=== PATIENT | female | born 2000 | race Caucasian/White ===

== ENCOUNTER 2020-11-30 14:43 | Outpatient (REF) | payer OTHER, SELFPAY | END 2020-11-30 14:44 | disposition home or self-care (01) | LOC: HO.HMGCLDS 14:43 | PROVIDERS: Visit Provider Internal Medicine | DX: Z20.828 Contact with and (suspected) exposure to other viral communicable diseases (principal) | CPT/HCPCS: C9803; U0003 ==

== ENCOUNTER 2023-01-24 05:10 | Emergency (ER) | payer OTHER, SELFPAY ==
[2023-01-24 05:45] VITALS: BP 119/75; PULSE 134; RESP 20; TEMP 36.6; O2SAT 96; BMI 29.7
[2023-01-24 06:03] VITALS: BP 113/82; PULSE 109; RESP 21; TEMP 36.6; O2SAT 95
--- NOTE | 2023-01-24 06:04 | MHC.EDTECH ---
Pt made aware that urine sample is needed. Pt states she does not need to go at the moment. Pt instructed to ring call ronquillo when she is ready so a sample can be applied.
[2023-01-24] MEDS: ondansetron HCL 4 MG/2 ML VIAL IVPUSH (06:08)
[2023-01-24] MEDS: 0.9 % Sodium Chloride 1,000 ML 999 ML IV (06:09)
--- NOTE | 2023-01-24 06:09 | PC.NURSE ---
Addendum entered by Staci Molina 01/24/23 06:10: IV was [id number] on her RAC. IVF are running per MAR. Original Note: Pt's BP is normal, pt is on the traffic monitor specialist and it shows sinus tachy, pt reports N/V and diarrhea x 4 hours. Pt is a/o x4, and afribile, no chills or any other symptoms.
[2023-01-24 06:10] LABS: MANUAL DIFF FLAG NO
[2023-01-24 06:11] VITALS: BP 113/82; PULSE 104; RESP 20; TEMP 36.6; O2SAT 96
[2023-01-24 06:23] LABS: Basophils Percent Auto 0.2 % (0-2); Eosinophils Absolute Auto 0.1 X10*3/uL (0.0-0.4); Eosinophils Percent Auto 0.4 % (0-4); Hemoglobin 15.6 g/dl (12.0-16.0); Imm Gran Abs Auto 0.04 X10*3/uL (0.00-0.03); Imm Gran Pct Auto 0.3 % (0.0-0.4); Lymphocytes Absolute Auto 0.9 X10*3/uL (1.2-4.9); Lymphocytes Percent Auto 6.1 % (20-40); Mean Corpuscular HGB Conc 34.7 g/dl (31.0-35.0); Mean Corpuscular Hemoglobin 29.9 pg (27.0-33.0); Mean Corpuscular Volume 86.2 fL (80.0-98.0); Mean Platelet Volume 11.4 fL (9.4-12.3); Monocytes Absolute Auto 0.7 X10*3/uL (0.1-1.2); Monocytes Percent Auto 4.5 % (2-11); Neutrophils Absolute Auto 12.8 x10*3/uL (2.0-8.3); Neutrophils Percent Auto 88.5 % (45-73); Platelet Count 264 X10*3/uL (160-400); Red Blood Count 5.22 X10*6/uL (4.20-5.50); Red Cell Distribution Width 12.1 % (11.0-16.0); White Blood Count 14.4 X10*3/uL (4.8-10.8)
[2023-01-24 06:26] LABS: COVID-19 Test Negative (Negative); IDNOW Serial# BCCEAD1C
[2023-01-24 06:44] LABS: Anion Gap 19 (12-20); Blood Urea Nitrogen 12 mg/dL (9-16); Calcium 9.3 mg/dL (8.4-10.2); Carbon Dioxide 21 mmol/L (22-29); Chloride 106 mmol/L (96-108); Creatinine Clr Calc Pharmacy 135.8; Estimated Glomerular Filt Rate > 60; Glucose Random 138 mg/dL (60-115); Lipase 16 U/L (8-78); Potassium 4.5 mmol/L (3.3-5.1); Sodium 141 mmol/L (135-145)
--- NOTE | 2023-01-24 06:47 | ED_ITS ---
HPI - General Adult General Chief complaint: Nausea/Vomiting/Diarrhea Stated complaint: n/v Time Seen by Provider: 01/24/23 06:37 Source: patient Mode of arrival: ambulatory Limitations: no limitations History of Present Illness HPI narrative: 22-year-old female with no previous medical problems presents with 1 day of nausea, vomiting, diarrhea. Patient has had some urinary symptoms for which she started nitrofurantoin. She still has some urinary symptoms. She has had no fevers or chills. She has had some very mild generalized abdominal discomfort. Her diarrhea has been nonbloody. Her vomitus has also been nonbloody, nonbilious. She does have a sick contact in her family who also has nausea vomiting diarrhea. There has been no clear relieving or exacerbating features patient scribe's of symptoms is moderate nature. She has no back pain. Related Data Previous Rx's Medication Instructions Recorded ondansetron 4 mg disintegrating 4 mg PO Q8H PRN nausea and 01/24/23 tablet vomiting #10 tabs Allergies Allergy/AdvReac Type Severity Reaction Status Date / Time oxycodone AdvReac Vomiting Verified 01/24/23 05:44 Review of Systems Review of Systems: CONSTITUTIONAL: Denies weight loss, fever and chills. HEENT: Denies changes in vision and hearing. RESPIRATORY: Denies SOB and cough. CV: Denies palpitations no CP. GI: + abdominal pain, nausea, vomiting and diarrhea. : Denies dysuria and urinary frequency. MSK: Denies myalgia and joint pain. SKIN: Denies rash and pruritus. NEUROLOGICAL: Denies headache and syncope. PSYCHIATRIC: Denies recent changes in mood. Denies anxiety and depression. All other ROS are negative unless in HPI PMFSH Social History Social History Smoked in Last 30 Days: Yes Use of substances other than those prescribed or required for medical reasons: No Advance Directives: No Patient : No Physical Exam ED Vital Signs: Vital Signs - 24 hr 01/24/23 05:45 01/24/23 06:03 01/24/23 06:11 Temperature 97.9 F 97.8 F 97.8 F Pulse Rate 134 H 109 H 104 H Respiratory Rate 20 21 H 20 Blood Pressure 119/75 113/82 113/82 Pulse Oximetry 96 95 96 Oxygen Delivery Method Room Air Room Air Room Air BMI result Body Mass Index 29.7 CONSTITUTIONAL: Denies weight loss, fever and chills. HEENT: Denies changes in vision and hearing. RESPIRATORY: Denies SOB and cough. CV: Denies palpitations no CP. GI: + abdominal pain, nausea, vomiting and diarrhea. : Denies dysuria and urinary frequency. MSK: Denies myalgia and joint pain. SKIN: Denies rash and pruritus. NEUROLOGICAL: Denies headache and syncope. PSYCHIATRIC: Denies recent changes in mood. Denies anxiety and depression. All other ROS are negative unless in HPI Course Course Course Narrative: 22-year-old female presents with nausea, vomiting, diarrhea with a sick contact. She has minimal abdominal pain. Her examination was benign without rebound or guarding. She has no CVA tenderness. She is currently on antibiotics for urinary tract infection. She has no vaginal bleeding or discharge. Differential diagnosis could include viral gastroenteritis, antibiotic associated symptoms, IBS, IBD, pyelonephritis, UTI. Patient will receive IV fluids, antiemetics. She has no significant abdominal pain. This time, will withhold analgesics medications. Will re-evaluate following intervention. Also will check laboratory results and make sure she does not have any significant electrolyte abnormalities such as hypokalemia. She may also have hyponatremia from hypovolemia. She does not appear to be severely dehydrated. Suspect patient will be able to be discharged following full workup. Reevaluation(s) Reevaluation #1: Patient is feeling improved. She was able tolerate oral intake. Discussed discharge instructions Time: 09:16 Medications Administered Discontinued Medications Generic Name Dose Route Start Last Admin Trade Name Fuentes PRN Reason Stop Dose Admin Sodium Chloride 1,000 mls @ 999 mls/hr 01/24/23 06:00 01/24/23 06:09 Ns IV 01/24/23 07:00 999 mls/hr .[id number] LEONEL Administration Ondansetron HCl 4 mg 01/24/23 05:50 01/24/23 06:08 Ondansetron Hcl 4 Mg/2 Ml Vial IVPUSH 01/24/23 05:51 4 mg ONCE ONE Administration Medical Decision Making Medical Decision Making [facility] Narrative: 22-year-old female presents with nausea, vomiting, diarrhea. She has no abdominal tenderness, rebound or guarding. Doubt acute abdomen. Will provide patient with IV fluids, antiemetics, re-evaluate. Differential Diagnosis Differential Diagnoses: The differential diagnosis associated with the presentation includes (Gastroenteritis, nausea/vomiting/diarrhea, UTI, pyelonephritis, antibiotic associated diarrhea, appendicitis, diverticulitis colitis, IBS, IBD) Admission/Observation Consideration of admission/observation: Escalation of care including admission/observation considered Lab Data MDM Lab Attestation statement: I reviewed the patient's lab results. 01/24/23 06:01 01/24/23 06:01 Labs: Lab Results 01/24/23 01/24/23 01/24/23 Range/Units 06:01 06:01 06:01 WBC 14.4 H (4.8-10.8) X10*3/uL RBC 5.22 (4.20-5.50) X10*6/uL Hgb 15.6 (12.0-16.0) g/dl Hct 45.0 (37.0-47.0) % MCV 86.2 (80.0-98.0) fL MCH 29.9 (27.0-33.0) pg MCHC 34.7 (31.0-35.0) g/dl RDW 12.1 (11.0-16.0) % Plt Count 264 (160-400) X10*3/uL MPV 11.4 (9.4-12.3) fL Immature Gran % (Auto) 0.3 (0.0-0.4) % Neut % (Auto) 88.5 H (45-73) % Lymph % (Auto) 6.1 L (20-40) % [place] % (Auto) 4.5 (2-11) % Eos % (Auto) 0.4 (0-4) % Baso % (Auto) 0.2 (0-2) % Lymph # (Auto) 0.9 L (1.2-4.9) X10*3/uL [place] # (Auto) 0.7 (0.1-1.2) X10*3/uL Eos # (Auto) 0.1 (0.0-0.4) X10*3/uL Baso # (Auto) 0.0 (0.0-0.2) X10*3/uL Abs Immat Gran (auto) 0.04 H (0.00-0.03) X10*3/uL Absolute Neuts (auto) 12.8 H (2.0-8.3) x10*3/uL Absolute Nucleated RBC 0.000 (0.0-0.012) X10*3/uL Nucleated RBC % (auto) 0.0 (0.0-0.2) /100WBC Sodium 141 (135-145) mmol/L Potassium 4.5 (3.3-5.1) mmol/L Chloride 106 (96-108) mmol/L Carbon Dioxide 21 L (22-29) mmol/L Anion Gap 19 (12-20) BUN 12 (9-16) mg/dL Creatinine 0.72 (0.5-1.4) mg/dL Estim Creat Clear Calc 135.8 Estimated GFR > 60 Random Glucose 138 H (60-115) mg/dL Calcium 9.3 (8.4-10.2) mg/dL Lipase 16 (8-78) U/L Urine Color Urine Appearance Urine pH (5.0-9.0) Ur Specific [place] (1.005-1.025) Urine Protein (Neg-Trace) mg/dL Urine Glucose (UA) (Negative) mg/dL Urine Ketones (Negative) mg/dL Urine Blood (Negative) Urine Nitrite (Negative) Ur Leukocyte Esterase (Negative) Urine RBC (0-2) /HPF Urine WBC (0-5) /HPF Ur Squamous Epith Cells (0-2) /HPF Urine Bacteria (None Seen) Hyaline Casts (0-2) /LPF COVID-19 ([facility]) Negative (Negative) COVID-19 Clin Com See Note 01/24/23 Range/Units 06:51 WBC (4.8-10.8) X10*3/uL RBC (4.20-5.50) X10*6/uL Hgb (12.0-16.0) g/dl Hct (37.0-47.0) % MCV (80.0-98.0) fL MCH (27.0-33.0) pg MCHC (31.0-35.0) g/dl RDW (11.0-16.0) % Plt Count (160-400) X10*3/uL MPV (9.4-12.3) fL Immature Gran % (Auto) (0.0-0.4) % Neut % (Auto) (45-73) % Lymph % (Auto) (20-40) % [place] % (Auto) (2-11) % Eos % (Auto) (0-4) % Baso % (Auto) (0-2) % Lymph # (Auto) (1.2-4.9) X10*3/uL [place] # (Auto) (0.1-1.2) X10*3/uL Eos # (Auto) (0.0-0.4) X10*3/uL Baso # (Auto) (0.0-0.2) X10*3/uL Abs Immat Gran (auto) (0.00-0.03) X10*3/uL Absolute Neuts (auto) (2.0-8.3) x10*3/uL Absolute Nucleated RBC (0.0-0.012) X10*3/uL Nucleated RBC % (auto) (0.0-0.2) /100WBC Sodium (135-145) mmol/L Potassium (3.3-5.1) mmol/L Chloride (96-108) mmol/L Carbon Dioxide (22-29) mmol/L Anion Gap (12-20) BUN (9-16) mg/dL Creatinine (0.5-1.4) mg/dL Estim Creat Clear Calc Estimated GFR Random Glucose (60-115) mg/dL Calcium (8.4-10.2) mg/dL Lipase (8-78) U/L Urine Color Dark Yellow Urine Appearance Cloudy Urine pH 6.0 (5.0-9.0) Ur Specific [place] >= 1.030 H (1.005-1.025) Urine Protein 30 (1+) H (Neg-Trace) mg/dL Urine Glucose (UA) Negative (Negative) mg/dL Urine Ketones 40 (Negative) mg/dL Urine Blood Moderate (2+) H (Negative) Urine Nitrite Positive H (Negative) Ur Leukocyte Esterase Small (1+) H (Negative) Urine RBC 6-10 H (0-2) /HPF Urine WBC 0-5 (0-5) /HPF Ur Squamous Epith Cells 3-5 (0-2) /HPF Urine Bacteria 2+ (None Seen) Hyaline Casts 0-2 (0-2) /LPF COVID-19 ([facility]) (Negative) COVID-19 Clin Com External Record Review No records available Tests considered The following testing was considered but not selected: CT scan of the abdomen and pelvis Prescription Management I considered prescription management with: Other (Antiemetics) Discharge Plan Discharge Clinical Impression: Nausea vomiting and diarrhea, Gastroenteritis Patient Disposition: Home, Self-Care Instructions: Dehydration (ED), Acute Nausea and Vomiting (ED), Acute Diarrhea (ED) Prescriptions: New ondansetron 4 mg tablet,disintegrating 4 mg PO Q8H PRN (Reason: nausea and vomiting) Qty: 10 0RF Referrals: Physician,Unknown J [Primary Care Provider] - (Follow-up with your primary care provider in 2-3 days if persistently having symptoms.)
[2023-01-24 06:58] LABS: Appearance Urine Cloudy; Color Urine Dark Yellow; Glucose Urine UA Negative (Negative); Leukocyte Esterase Urine Small (1+) (Negative); Nitrite Urine Positive (Negative); Specific Gravity - Urine >= 1.030 (1.005-1.025); UMIC TRIGGER UACC YES; Urine Blood Moderate (2+) (Negative); Urine Ketones 40 mg/dL (Negative); Urine Protein 30 (1+) mg/dL (Neg-Trace)
[2023-01-24 07:11] LABS: Bacteria Urine 2+ (None Seen); Hyaline Casts Urine 0-2 /LPF (0-2); UACC Culture Trigger YES; WBC Urine 0-5 /HPF (0-5)
[2023-01-24 09:21] VITALS: BP 92/48; PULSE 100; RESP 23; TEMP 36.9; O2SAT 95
== END 2023-01-24 09:25 | disposition home or self-care (01) ==
PROVIDERS: Emergency Provider Emergency Medicine
DX: K52.9 Noninfective gastroenteritis and colitis, unspecified (principal); R11.2 Nausea with vomiting, unspecified; R10.84 Generalized abdominal pain; Z20.822 Contact with and (suspected) exposure to COVID-19
CPT/HCPCS: 36415; 80048; 81001; 83690; 85025; 87086; 87635; 96374; 99284; J2405

== ENCOUNTER 2024-03-25 03:44 | Emergency (ER) | payer OTHER, SELFPAY ==
--- NOTE | ~2024-03-25 | CT_ITS ---
EXAMINATION: CT ABDOMEN AND PELVIS WITHOUT CONTRAST CLINICAL INFORMATION: Left flank pain COMPARISON: Previous CT of the abdomen and pelvis July 2019 and renal ultrasound November 2018 TECHNIQUE: Multidetector volumetric imaging was performed from the superior aspect of the liver through the pubic symphysis. Sagittal and coronal reformatted images were obtained on the technologist's workstation. This CT examination was performed using dose optimization techniques as appropriate, variously including the following: *Automated exposure control *Adjustment of mA and/or kV according to patient size (this includes techniques or standardized protocols for targeted exams where dose is matched to indication/reason for exam; i.e. extremities or head) *Use of iterative reconstruction technique DLP: 653 mGy-cm FINDINGS: LUNG BASES: The visualized lung bases are unremarkable. LIVER, GALLBLADDER, AND BILIARY TREE: The liver is normal in size, shape, and attenuation. No focal hepatic lesion or biliary ductal dilatation is present. The gallbladder is unremarkable with no evidence of radiopaque gallstones, gallbladder wall thickening, or obvious pericholecystic inflammatory changes. PANCREAS: Unremarkable. SPLEEN: Unremarkable. ADRENAL GLANDS: Unremarkable. KIDNEYS AND URETERS: The kidneys are normal in size, shape, and attenuation. No hydronephrosis. Mild dilatation of the left ureter. Possible tiny 1 mm nonobstructing in the lower pole of the right kidney. No left renal stone. New 2 mm calcification in the left pelvis in the UPJ region for example axial image 79 series 3 suggestive of a left distal ureteral or UVJ stone. BLADDER: Unremarkable. GASTROINTESTINAL TRACT: The small and large bowel are unremarkable. The appendix is unremarkable. ABDOMINAL WALL: No significant hernia is appreciated. LYMPH NODES: Normal. VASCULAR: Unremarkable. PELVIC VISCERA: Unremarkable. OSSEOUS STRUCTURES: Unremarkable. CT/CT abdomen pelvis wo IV con IMPRESSION: Mild left ureteral dilatation from a 2 mm left distal ureteral or UVJ stone. Question tiny 1 mm right renal stone. Fleischner guidelines were followed.
[2024-03-25 04:03] VITALS: BP 121/78; PULSE 89; RESP 16; TEMP 36.4; O2SAT 99; BMI 30.7
[2024-03-25 04:29] LABS: MANUAL DIFF FLAG NO
[2024-03-25 04:30] LABS: Basophils Absolute Auto 0.1 X10*3/uL (0.0-0.2); Basophils Percent Auto 0.6 % (0-2); Eosinophils Absolute Auto 0.1 X10*3/uL (0.0-0.4); Eosinophils Percent Auto 1.2 % (0-4); Hematocrit 37.9 % (37.0-47.0); Hemoglobin 13.2 g/dl (12.0-16.0); Imm Gran Abs Auto 0.01 X10*3/uL (0.00-0.03); Imm Gran Pct Auto 0.1 % (0.0-0.4); Lymphocytes Absolute Auto 2.7 X10*3/uL (1.2-4.9); Lymphocytes Percent Auto 32.8 % (20-40); Mean Corpuscular HGB Conc 34.8 g/dl (31.0-35.0); Mean Corpuscular Volume 86.1 fL (80.0-98.0); Mean Platelet Volume 11.6 fL (9.4-12.3); Monocytes Absolute Auto 0.5 X10*3/uL (0.1-1.2); Monocytes Percent Auto 5.7 % (2-11); Neutrophils Absolute Auto 4.9 x10*3/uL (2.0-8.3); Neutrophils Percent Auto 59.6 % (45-73); Platelet Count 225 X10*3/uL (160-400); White Blood Count 8.1 X10*3/uL (4.8-10.8)
--- NOTE | 2024-03-25 04:30 | MHC.EDTECH ---
patient blood drawn and urine sample collected and sent to lab .
[2024-03-25 04:31] LABS: Appearance Urine Cloudy; Color Urine Yellow; Glucose Urine UA Negative (Negative); Leukocyte Esterase Urine Trace (Negative); Nitrite Urine Negative (Negative); Specific Gravity - Urine 1.025 (1.005-1.025); UMIC TRIGGER UACC YES; Urine Blood Moderate (2+) (Negative); Urine Ketones Negative (Negative); Urine Protein Negative (Neg-Trace)
[2024-03-25 04:42] LABS: Bacteria Urine 4+ (None Seen); Hyaline Casts Urine 0-2 /LPF (0-2); UACC Culture Trigger YES
[2024-03-25 04:45] LABS: Alanine Aminotransferase 17 U/L (0-31); Albumin Level 3.7 g/dL (3.5-5.0); Alkaline Phosphatase 46 U/L (39-117); Anion Gap 12 (12-20); Aspartate Amino Transferase 17 U/L (5-31); Bilirubin Total 0.5 mg/dL (0.0-1.0); Blood Urea Nitrogen 9 mg/dL (9-16); Calcium 8.8 mg/dL (8.4-10.2); Carbon Dioxide 21 mmol/L (22-29); Chloride 109 mmol/L (96-108); Creatinine Clr Calc Pharmacy 153.9; Estimated Glomerular Filt Rate > 60; Glucose Random 104 mg/dL (60-115); Potassium 3.7 mmol/L (3.3-5.1); Sodium 138 mmol/L (135-145); Total Protein 6.7 g/dL (6.5-8.0)
[2024-03-25 06:55] VITALS: BP 95/52; PULSE 67; RESP 14; TEMP 36.7; O2SAT 99
--- NOTE | 2024-03-25 06:57 | ED.ABDPAIN ---
HPI - Abdominal Pain General Chief Complaint: Abdominal Pain Stated Complaint: Abd pain Time Seen by Provider: 03/25/24 06:39 Source: patient, RN notes reviewed and old records reviewed Mode of arrival: ambulatory Limitations: no limitations History of Present Illness HPI narrative: 23 year old female with pmhx significant for nephrolithiasis (5 yrs ago) presents today for evaluation of left flank pain beginning acutely at 0300 this morning. Pain is intermittent and radiates to left pelvic/ groin region. Admits to associated dysuria. Admits to taking 600mg Motrin around 0400 this morning without relief. Denies hematuria, increased urinary frequency or urgency. LMP 1 mo ago. Denies fevers, chills, vaginal discharge, abdominal pain, N/V/D. Denies known sick contacts. Denies recent travel. No injury or trauma. Related Data Previous Rx's ?Medication ?Instructions ?Recorded ondansetron 4 mg disintegrating 4 mg PO Q8H PRN nausea and 01/24/23 tablet vomiting #10 tabs nitrofurantoin 100 mg PO BID 7 days #14 caps 03/25/24 monohydrate/macrocrystals 100 mg capsule ondansetron 4 mg disintegrating 4 mg PO DAILY PRN nausea and 03/25/24 tablet vomiting 5 days #14 tabs prednisone 50 mg tablet 50 mg PO DAILY 5 days #5 tabs 03/25/24 tamsulosin 0.4 mg capsule (Flomax) 0.4 mg PO BEDTIME 2 weeks #14 caps 03/25/24 Allergies Allergy/AdvReac Type Severity Reaction Status Date / Time oxycodone AdvReac Vomiting Verified 03/25/24 04:05 Review of Systems Review of Systems Constitutional: No fever, chills, fatigue, night sweats, weight changes ENT/Mouth: No ear pain, hearing loss, nasal congestion, sinus pain, rhinorrhea, sore throat Eyes: No eye pain, swelling, redness, vision changes, discharge Cardio: No chest pain, palpitations, BOUCHER, orthopnea, peripheral edema Pulm: No SOB, cough, sputum, wheezing, dyspnea, hemoptysis GI: No nausea, vomiting, hematemesis, abdominal pain, diarrhea, constipation, hematochezia, melena : No irregular bleeding, frequency, urgency, hesitancy, hematuria, urinary flow changes, urinary incontinence or retention, +L flank pain, +dysuria MSK: No back pain, neck pain, joint pain, myalgias Skin: No lesions, rashes Neuro: No weakness, numbness, paresthesias, LOC, dizziness, headache Psych: No anxiety/panic, depression, SI/HI, AH/VH All other systems reviewed and are negative. [facility] Past Medical History Attestation statement: The following information was validated with the patient. Source: old records reviewed and nursing notes reviewed Social History Social History Advance Directives: No Advance Directives Information Provided: Yes Do you have a plan to hurt others: No Plan Physical Exam ED Vital Signs: Vital Signs - 24 hr 03/25/24 04:03 03/25/24 06:55 03/25/24 08:33 Temperature 97.6 F 98.1 F 98.4 F Pulse Rate 89 67 73 Respiratory Rate 16 14 18 Blood Pressure 121/78 95/52 L 114/65 Pulse Oximetry 99 99 98 Oxygen Delivery Method Room Air Room Air Room Air 03/25/24 08:52 Temperature 98.4 F Pulse Rate 73 Respiratory Rate 18 Blood Pressure 114/65 Pulse Oximetry 98 Oxygen Delivery Method Room Air BMI result Body Mass Index 30.7 Vital signs stable Const General: cooperative, healthy appearing, comfortable and no acute distress Orientation/consciousness: patient oriented x3 Limitations: no limitations HENMT Head: Yes normal to inspection, Yes No palpable skull fracture present, Yes normocephalic and Yes atraumatic Eyes General: appearance normal, both eyes and all related structures Conjunctivae: conjunctivae normal Sclerae: sclerae normal Pupils: Equal, round and reactive pupils present Neck Neck: Yes normal visual inspection, Yes full ROM and Yes no lymphadenopathy Resp Effort & Inspection: normal respiratory effort and able to speak in complete sentences Auscultation: clear to auscultation bilaterally Cardio Rate: regular rate Rhythm: regular rhythm GI Inspection: Yes normal to inspection Palpation (GI): Soft to palpation and nontender Other: + left CVAT Back/Spine/Pelvis Other: No midline spinous tenderness or step off deformity. No paraspinal muscle tenderness. Skin General skin exam: no rashes or lesions noted Neuro General: patient oriented x3 and gait normal Cranial nerves: Yes Equal, round and reactive pupils present Extrem General: Yes normal to inspection Course Course Course Narrative: 07-- CBC without leukocytosis or left shift. No anemia. H&H stable. Chemistry without acute electrolyte abnormality requiring intervention. Chloride 109. Carbon dioxide 21. Normal renal function. Normal liver function. Urine with moderate amount of blood and RBCs > renal stone likely. There is trace leukocyte esterase and 6-10 WBC. 3-5 squamous epithelial cells. 4+ urine bacteria. > serum beta HCG and CT abdomen/pelvis pending. IV fluids running. 0840-- Beta HCG negative > no . CT abdomen/pelvis showing mild left ureteral dilation from a 2 mm left distal ureteral or UVJ stone. Question tiny 1 mm right renal stone. Findings correlate with exam. These should pass on their own. No concern for obstructive uropathy. > informed patient of all lab and imaging results. Will send her home with prednisone, Flomax, Zofran for renal stone along with nitrofurantoin for urinary tract infection. She is agreeable with this. she has recieved 1L IVF in ED. Patient has remained stable throughout ED visit today. Discussed worrisome signs and symptoms and when to return to the ED. All questions answered at this time. Patient is agreeable with disposition and stable for discharge. Medical Decision Making Medical Decision Making [facility] Narrative: 23 year old female with pmhx significant for nephrolithiasis (5 yrs ago) presents today for evaluation of left flank pain beginning acutely at 0300 this morning. Patient slightly hypotensive to 95/52. IV fluids ordered. Vitals otherwise WNL. Afebrile. Nontoxic appearing and in no acute distress. Abdomen is soft, nondistended, nontender to palpation, no rebound tenderness or guarding. Normoactive bowel sounds x4. There is left CVAT. Skin warm, dry, intact. Differential diagnosis includes MSK sprain/strain, nephrolithiasis, renal colic, hydronephrosis, urinary tract infection. Unlikely fracture, dislocation, cauda equina, epidural abscess, pyelonephritis, obstructive uropathy, . Plan for labs, urine, urine , CT abdomen/pelvis, IVF, pain control and re-evaluation. Differential Diagnosis Differential Diagnoses: The differential diagnosis associated with the presentation includes as above. Admission/Observation not indicated. Lab Data [facility] Lab Attestation statement: I reviewed the patient's lab results. as above. 03/25/24 04:24 03/25/24 04:24 Labs: Lab Results 03/25/24 Range/Units 04:24 WBC 8.1 (4.8-10.8) X10*3/uL RBC 4.40 (4.20-5.50) X10*6/uL Hgb 13.2 (12.0-16.0) g/dl Hct 37.9 (37.0-47.0) % MCV 86.1 (80.0-98.0) fL MCH 30.0 (27.0-33.0) pg MCHC 34.8 (31.0-35.0) g/dl RDW 12.0 (11.0-16.0) % Plt Count 225 (160-400) X10*3/uL MPV 11.6 (9.4-12.3) fL Immature Gran % (Auto) 0.1 (0.0-0.4) % Neut % (Auto) 59.6 (45-73) % Lymph % (Auto) 32.8 (20-40) % [place] % (Auto) 5.7 (2-11) % Eos % (Auto) 1.2 (0-4) % Baso % (Auto) 0.6 (0-2) % Lymph # (Auto) 2.7 (1.2-4.9) X10*3/uL [place] # (Auto) 0.5 (0.1-1.2) X10*3/uL Eos # (Auto) 0.1 (0.0-0.4) X10*3/uL Baso # (Auto) 0.1 (0.0-0.2) X10*3/uL Abs Immat Gran (auto) 0.01 (0.00-0.03) X10*3/uL Absolute Neuts (auto) 4.9 (2.0-8.3) x10*3/uL Absolute Nucleated RBC 0.000 (0.0-0.012) X10*3/uL Nucleated RBC % (auto) 0.0 (0.0-0.2) /100WBC Sodium 138 (135-145) mmol/L Potassium 3.7 (3.3-5.1) mmol/L Chloride 109 H (96-108) mmol/L Carbon Dioxide 21 L (22-29) mmol/L Anion Gap 12 (12-20) BUN 9 (9-16) mg/dL Creatinine 0.64 (0.5-1.4) mg/dL Estim Creat Clear Calc 153.9 Estimated GFR > 60 Random Glucose 104 (60-115) mg/dL Calcium 8.8 (8.4-10.2) mg/dL Total Bilirubin 0.5 (0.0-1.0) mg/dL AST 17 (5-31) U/L ALT 17 (0-31) U/L Alkaline Phosphatase 46 (39-117) U/L Total Protein 6.7 (6.5-8.0) g/dL Albumin 3.7 (3.5-5.0) g/dL Beta HCG, Quant < 2 mIU/mL Urine Color Yellow Urine Appearance Cloudy Urine pH 6.0 (5.0-9.0) Ur Specific [place] 1.025 (1.005-1.025) Urine Protein Negative (Neg-Trace) mg/dL Urine Glucose (UA) Negative (Negative) mg/dL Urine Ketones Negative (Negative) mg/dL Urine Blood Moderate (2+) H (Negative) Urine Nitrite Negative (Negative) Ur Leukocyte Esterase Trace H (Negative) Urine RBC 3-5 H (0-2) /HPF Urine WBC 6-10 H (0-5) /HPF Ur Squamous Epith Cells 3-5 (0-2) /HPF Urine Bacteria 4+ (None Seen) Hyaline Casts 0-2 (0-2) /LPF Independent Interpretation I performed an independent interpretation of an: CT Scan Interpretation: CT abdomen/pelvis showing small left UVJ stone, agree with radiologist's interpretation. Radiology Impression Discussion of test interpretation with radiology: I have reviewed the radiologist's reading. Radiologist Impression: EXAMINATION: CT ABDOMEN AND PELVIS WITHOUT CONTRAST CLINICAL INFORMATION: Left flank pain COMPARISON: Previous CT of the abdomen and pelvis July 2019 and renal ultrasound November 2018 TECHNIQUE: Multidetector volumetric imaging was performed from the superior aspect of the liver through the pubic symphysis. Sagittal and coronal reformatted images were obtained on the technologist's workstation. This CT examination was performed using dose optimization techniques as appropriate, variously including the following: *Automated exposure control *Adjustment of mA and/or kV according to patient size (this includes techniques or standardized protocols for targeted exams where dose is matched to indication/reason for exam; i.e. extremities or head) *Use of iterative reconstruction technique DLP: 653 mGy-cm FINDINGS: LUNG BASES: The visualized lung bases are unremarkable. LIVER, GALLBLADDER, AND BILIARY TREE: The liver is normal in size, shape, and attenuation. No focal hepatic lesion or biliary ductal dilatation is present. The gallbladder is unremarkable with no evidence of radiopaque gallstones, gallbladder wall thickening, or obvious pericholecystic inflammatory changes. PANCREAS: Unremarkable. SPLEEN: Unremarkable. ADRENAL GLANDS: Unremarkable. KIDNEYS AND URETERS: The kidneys are normal in size, shape, and attenuation. No hydronephrosis. Mild dilatation of the left ureter. Possible tiny 1 mm nonobstructing in the lower pole of the right kidney. No left renal stone. New 2 mm calcification in the left pelvis in the UPJ region for example axial image 79 series 3 suggestive of a left distal ureteral or UVJ stone. BLADDER: Unremarkable. GASTROINTESTINAL TRACT: The small and large bowel are unremarkable. The appendix is unremarkable. ABDOMINAL WALL: No significant hernia is appreciated. LYMPH NODES: Normal. VASCULAR: Unremarkable. PELVIC VISCERA: Unremarkable. OSSEOUS STRUCTURES: Unremarkable. CT/CT abdomen pelvis wo IV con IMPRESSION: Mild left ureteral dilatation from a 2 mm left distal ureteral or UVJ stone. Question tiny 1 mm right renal stone. Fleischner guidelines were followed. Independent Historian Clinical information obtained from an independent historian. History obtained from or confirmed by: Friend External Record Review External record reviewed: Inpatient record Prescription Management I considered prescription management with: Antibiotic (Nitrofurantoin) and Other (Flomax, prednisone, Zofran) Social Determinants Patient?s care significantly limited by Social Determinants of Health including: Other Social Determinant of Health Medications Administered Discontinued Medications Generic Name Dose Route Start Last Admin Trade Name Freq PRN Reason Stop Dose Admin Acetaminophen 975 mg 03/25/24 08:36 03/25/24 08:42 Acetaminophen 325 Mg Tablet PO 03/25/24 08:37 975 mg ONCE ONE Administration Critical Care Time Critical Care Time Critical Care Time: Yes Total Critical Care Time: 31 Attestation: Critical care time in the amount of 31 minutes has been provided to the patient in terms of direct patient care, frequent reevaluation, review and interpretation of medical data and results, and management of potentially life-threatening conditions. This is all outside of any medical procedures. Discharge Plan Discharge Clinical Impression: Calculus of distal left ureter, Urinary tract infection Patient Disposition: Home, Self-Care Instructions: Urinary Tract Infection in Women (DC), Renal Colic (ED), Ureteral Stones (ED) Additional Instructions: Your labs today are reassuring. Your urine shows blood, indicative of passing or passage of kidney stone. The CT of your abdomen/pelvis shows mild left ureteral dilation from a 2 mm left distal ureteral or UVJ stone with tiny 1 mm right renal stone . These stones should pass on their own. The stone in your left urterer is close to passing. Prednisone is a steroid that has been sent to your pharmacy. Take this as prescribed to help with inflammation. Flomax is a medication that will help to flush the stone out. take this at night as this may cause your BP to decrease and you to feel light headed. Please stay well hydrate and get lots of rest. Please take tylenol and ibuprofen as needed for pain/ discomfort. Return to the ED with new or worsening symptoms. In the case of an emergency call 911. Your urine today was positive for infection. Nitrofurantoin is an antibiotic that has been sent to your pharmacy. Take this as prescribed and do not miss any doses. You must complete the entire course of antibiotics. If you do not, there is a risk of the infection coming back or worsening. Follow up with your primary care provider as needed. If you develop a fever or new/ worsening symptoms call 911 or come back to the ER for further evaluation. Prescriptions: New ondansetron 4 mg tablet,disintegrating 4 mg PO DAILY PRN (Reason: nausea and vomiting) 5 Days Qty: 14 0RF nitrofurantoin monohyd/m-cryst 100 mg capsule 100 mg PO BID 7 Days Qty: 14 0RF Rx Instructions: must administer with a meal/food prednisone 50 mg tablet 50 mg PO DAILY 5 Days Qty: 5 0RF tamsulosin [Flomax] 0.4 mg capsule 0.4 mg PO BEDTIME 14 Days Qty: 14 0RF No Action ondansetron 4 mg tablet,disintegrating 4 mg PO Q8H PRN (Reason: nausea and vomiting) Qty: 10 0RF Referrals: [facility] [place] Family Medicine [Provider Group] [facility] [place] [facility] [Provider Group] [facility] [place] [facility] [Provider Group] Stand Alone Forms: Work/School Release Interventions: ED Discharge Assessment Last Done: 03/25/24 08:52 Discharge Date/Time: 03/25/24 08:52 Print Language: Filipino
[2024-03-25 08:20] LABS: HCG Quantitative < 2 mIU/mL
[2024-03-25 08:33] VITALS: BP 114/65; PULSE 73; RESP 18; TEMP 36.9; O2SAT 98
[2024-03-25] MEDS: Acetaminophen 325 MG TABLET 975 MG PO (08:42)
[2024-03-25 08:52] VITALS: BP 114/65; PULSE 73; RESP 18; TEMP 36.9; O2SAT 98
== END 2024-03-25 08:52 | disposition home or self-care (01) ==
PROVIDERS: Physician Assistant Medical; Emergency Provider Emergency Medicine
DX: N20.1 Calculus of ureter (principal); N39.0 Urinary tract infection, site not specified; Z87.442 Personal history of urinary calculi
CPT/HCPCS: 36415; 74176; 80053; 81001; 84702; 85025; 87086; 99283; 99284